=== PATIENT | female | born 1970 | race Caucasian/White ===

== ENCOUNTER 2019-09-22 08:34 | Emergency (ER) | payer BC ==
[2019-09-22] MEDS ORDERED: Ibuprofen 600 MG Tab PO ONE (08:56)
--- NOTE | 2019-09-22 09:00 | EDM.PDOC ---
ED HPI GENERAL MEDICAL PROBLEM - General Chief Complaint: ENT Problem Stated Complaint: SORE THROAT Time Seen by Provider: 09/22/19 08:37 Source of Information: Reports: Patient History Limitations: Reports: No Limitations - History of Present Illness INITIAL COMMENTS - FREE TEXT/NARRATIVE: 49F PMHx bipolar disorder presents for concern for strep throat. Patient states she was in normal state of health until last night she noted mild sore throat. She notes pain with swallowing. No associated cough or SOB. No fevers but notes some body aches. She has not had any tylenol or motrin. She would like to be screened for strep throat. Throat Pain Score (Numeric/FACES): 5 - Related Data Allergies Allergy/AdvReac Type Severity Reaction Status Date / Time trazodone Allergy Difficulty Verified 09/22/19 08:52 Breathing Home Meds: Home Meds Albuterol Sulfate [Proventil Hfa] 6.7 gm IH ASDIRECTED PRN 09/22/19 [History] [place] Carbonate [Lithobid] 750 mg PO BEDTIME 09/22/19 [History] hydrOXYzine HCL [Atarax] 25 mg PO BEDTIME 09/22/19 [History] lamoTRIgine [Lamictal] 200 mg PO BID 09/22/19 [History] ziprasidone HCL [Geodon] 60 mg PO BEDTIME 09/22/19 [History] ED ROS ENT - Review of Systems Review Of Systems: Comprehensive ROS is negative, except as noted in HPI. ED EXAM, ENT - Physical Exam Exam: See Below Exam Limited By: No Limitations General Appearance: Alert, WD/WN, No Apparent Distress Ears: Normal External Exam Nose: Normal Inspection Mouth/Throat: Normal Inspection, Normal Oropharynx Head: Atraumatic, Normocephalic Neck: Normal Inspection. No: Lymphadenopathy (L), Lymphadenopathy (R) Respiratory/Chest: No Respiratory Distress, Lungs Clear, Normal Breath Sounds, No Accessory Muscle Use. No: Stridor Cardiovascular: Normal Peripheral Pulses, Regular Rate, Rhythm Extremities: Normal Inspection Neurological: Alert Psychiatric: Normal Affect Skin: Warm, Dry Course - Vital Signs Last Recorded V/S: Last Vital Signs Temp 98.8 F 09/22/19 08:56 Pulse 93 09/22/19 08:56 Resp 15 09/22/19 08:56 BP 142/78 H 09/22/19 08:56 Pulse Ox 96 08/15/20 08:56 - Orders/Labs/Meds Orders: Active Orders 24 hr Category Date Time Status CULTURE STREP A CONFIRMATION [RM] Stat Lab 09/22/19 09:00 Results STREP SCRN A RAPID W CULT CONF [RM] Stat Lab 09/22/19 09:00 Results Meds: Medications Discontinued Medications Generic Name Dose Route Start Last Admin Trade Name Morris PRN Reason Stop Dose Admin Ibuprofen 600 mg 09/22/19 08:56 09/22/19 09:06 Motrin PO 09/22/19 08:57 600 mg ONETIME ONE Administration - Re-Assessments/Exams Free Text/Narrative Re-Assessment/Exam: 09/22/19 08:59 Normal vitals and normal exam; less concern for bacterial pharyngitis but will do rapid strep w/ confirmation culture. Will give motrin for analgesia. Will f/u results and disposition accordingly. Free Text/Narrative Re-Assessment/Exam: 09/22/19 09:15 Rapid strep testing is negative. Will defer antibiotics pending culture results. Lower suspicion COVID-19 given symptoms and normal VS, but patient informed about the walk-in testing clinic M-F if symptoms persist. Return precautions discussed. Departure - Departure Time of Disposition: 09:15 Disposition: Home, Self-Care 01 Condition: Good Clinical Impression: Viral pharyngitis - Discharge Information Referrals: PMD, PMD [Other] Forms: ED Department Discharge Additional Instructions: The following information is given to patients seen in the emergency department who are being discharged to home. This information is to outline your options for follow-up care. We provide all patients seen in our emergency department with a follow-up referral. The need for follow-up, as well as the timing and circumstances, are variable depending upon the specifics of your emergency department visit. If you don't have a primary care physician on staff, we will provide you with a referral. We always advise you to contact your personal physician following an emergency department visit to inform them of the circumstance of the visit and for follow-up with them and/or the need for any referrals to a consulting specialist. The emergency department will also refer you to a specialist when appropriate. This referral assures that you have the opportunity for follow-up care with a specialist. All of these measure are taken in an effort to provide you with optimal care, which includes your follow-up. Under all circumstances we always encourage you to contact your private physician who remains a resource for coordinating your care. When calling for follow-up care, please make the office aware that this follow-up is from your recent emergency room visit. If for any reason you are refused follow-up, please contact the [facility] Emergency Department at and asked to speak to the emergency department charge nurse. Sepsis Event Note (ED) - Focused Exam Vital Signs: Vital Signs Temp Pulse Resp BP Pulse Ox 09/22/19 08:56 98.8 F 93 15 142/78 H 96 - My Orders Last 24 Hours: My Active Orders 09/22/19 09:00 CULTURE STREP A CONFIRMATION [RM] Stat STREP SCRN A RAPID W CULT CONF [RM] Stat - Assessment/Plan Last 24 Hours: My Active Orders 09/22/19 09:00 CULTURE STREP A CONFIRMATION [RM] Stat STREP SCRN A RAPID W CULT CONF [RM] Stat
== END 2019-09-22 09:37 | disposition home or self-care (01) ==
LOC: MW.ED 08:34
DX: J02.9 Acute pharyngitis, unspecified (principal); Z88.8 Allergy status to other drugs, medicaments and biological substances; Z79.899 Other long term (current) drug therapy
CPT/HCPCS: 87081; 87880; 99283; A9270; 99282

== ENCOUNTER 2020-07-06 10:48 | Emergency (ER) | payer BC ==
--- NOTE | 2020-07-06 10:49 | EDM.PDOC ---
ED HPI GENERAL MEDICAL PROBLEM - General Stated Complaint: UTI Time Seen by Provider: 07/06/20 10:49 Source of Information: Reports: Patient History Limitations: Reports: No Limitations - History of Present Illness INITIAL COMMENTS - FREE TEXT/NARRATIVE: 49-year-old female past medical history psychiatric problems presents for concern for UTI. Patient notes that for the last week she has had pain with urination, increased frequency of urination, a feeling of fullness in her suprapubic pelvis, and mild middle lower back pain. No urinary incontinence or retention. No nausea or vomiting. Patient also incidentally notes that she had knee surgery roughly 1 month ago and over the last couple of weeks has noticed swelling in her left lower extremity from the knee down to the ankle. She notes that she had an ultrasound performed of the left lower extremity to rule out blood clot 2 weeks ago which was negative. - Related Data Allergies Allergy/AdvReac Type Severity Reaction Status Date / Time trazodone Allergy Difficulty Verified 07/06/20 11:09 Breathing Home Meds: Home Meds Albuterol Sulfate [Proventil Hfa] 6.7 gm IH ASDIRECTED PRN 09/22/19 [History] [place] Carbonate [Lithobid] 750 mg PO BEDTIME 09/22/19 [History] lamoTRIgine [Lamictal] 200 mg PO BID 09/22/19 [History] ziprasidone HCL [Geodon] 60 mg PO BEDTIME 09/22/19 [History] Sertraline HCl [Zoloft] 100 mg PO BID 07/06/20 [History] Sulfamethoxazole/Trimethoprim [Bactrim Ds Tablet] 1 each PO BID 7 Days #14 tablet 07/06/20 [Rx] Past Medical History HEENT History: Reports: None Cardiovascular History: Reports: None Respiratory History: Reports: Asthma Gastrointestinal History: Reports: None Genitourinary History: Reports: None [employer] History: Reports: None Musculoskeletal History: Reports: None Neurological History: Reports: None Psychiatric History: Reports: Bipolar Endocrine/Metabolic History: Reports: None Hematologic History: Reports: None Immunologic History: Reports: None Oncologic (Cancer) History: Reports: None Dermatologic History: Reports: None - Infectious Disease History Infectious Disease History: Reports: Chicken Pox - Past Surgical History Head Surgeries/Procedures: Reports: None HEENT Surgical History: Reports: None Cardiovascular Surgical History: Reports: None Respiratory Surgical History: Reports: None GI Surgical History: Reports: None Female Surgical History: Reports: None Endocrine Surgical History: Reports: None Neurological Surgical History: Reports: None Musculoskeletal Surgical History: Reports: None Oncologic Surgical History: Reports: None Dermatological Surgical History: Reports: None Social & Family History - Family History Family Medical History: No Pertinent Family History - Caffeine Use Caffeine Use: Reports: Coffee, Soda, Tea ED ROS GENERAL - Review of Systems Review Of Systems: Comprehensive ROS is negative, except as noted in HPI. ED EXAM, GENERAL - Physical Exam Exam: See Below Exam Limited By: No Limitations General Appearance: Alert, WD/WN, No Apparent Distress Throat/Mouth: Normal Voice, No Airway Compromise Head: Atraumatic, Normocephalic Neck: Normal Inspection Respiratory/Chest: No Respiratory Distress, Lungs Clear, Normal Breath Sounds, No Accessory Muscle Use Cardiovascular: Normal Peripheral Pulses, Regular Rate, Rhythm GI/Abdominal: Soft, Non-Tender Back Exam: No: CVA Tenderness (L), CVA Tenderness (R) Extremities: Normal Inspection, Other (TTP of left calf without warmth or erythema, no significant swelling or edema) Neurological: Alert, Normal Cognition, Normal Gait Psychiatric: Normal Affect, Normal Mood Skin Exam: Warm, Dry, Intact, Normal Color Course - Vital Signs Last Recorded V/S: Last Vital Signs Temp 98.2 F 07/06/20 11:11 Pulse 85 07/06/20 11:11 Resp 18 07/06/20 11:11 BP 143/61 H 07/06/20 11:11 Pulse Ox 95 07/06/20 11:11 - Orders/Labs/Meds Orders: Active Orders 24 hr Category Date Time Status Venous Doppler Lwr Ext Lt [US] Stat Exams 07/06/20 12:08 Ordered Labs: Laboratory Tests 07/06/20 07/06/20 Range/Units 11:05 11:30 INR 1.01 APTT 24.7 (18.6-31.3) SEC D-Dimer, Quantitative 3.73 H (0.0-0.50) mg/L FEU Urine Color DARK YELLOW Urine Appearance CLOUDY Urine pH 5.5 (5.0-8.0) Ur Specific [place] <= 1.005 (1.001-1.035) Urine Protein NEGATIVE (NEGATIVE) mg/dL Urine Glucose (UA) NEGATIVE (NEGATIVE) mg/dL Urine Ketones NEGATIVE (NEGATIVE) mg/dL Urine Occult Blood NEGATIVE (NEGATIVE) Urine Nitrite POSITIVE H (NEGATIVE) Urine Bilirubin NEGATIVE (NEGATIVE) Urine Urobilinogen 1.0 (<2.0) EU/dL Ur Leukocyte Esterase LARGE H (NEGATIVE) Urine RBC 0-2 (0-2/HPF) Urine WBC 8-12 (0-5/HPF) Ur Epithelial Cells MODERATE (NONE-FEW) Urine Bacteria FEW (NEGATIVE) Meds: Medications Discontinued Medications Generic Name Dose Route Start Last Admin Trade Name Morris PRN Reason Stop Dose Admin Trimethoprim/Sulfamethoxazole 1 tab 07/06/20 11:23 07/06/20 11:54 Sulfamethoxazole/Trimethoprim 800-160 Mg Tab PO 07/06/20 11:24 1 tab ONETIME ONE Administration - Re-Assessments/Exams Free Text/Narrative Re-Assessment/Exam: 07/06/20 11:14 Urinalysis is remarkable for evidence of UTI; will give bactrim and send rx for bactrim. Considering patient's recent surgical procedure will get D-dimer to screen for DVT of the LLE. If D-dimer is elevated will get LLE doppler US. 07/06/20 12:09 Patient's D-dimer is markedly elevated. Patient's not any shortness of breath or chest pain. very low suspicion pulmonary embolism. Will get Doppler ultrasonography of the left lower extremity to rule out DVT. 07/06/20 14:00 Wet read of ultrasonography does not reveal DVT. Will discharge patient and will call back with official results. Patient is requesting pain medication stronger than Tylenol for her knee pain. Will discharge with Ultram. Departure - Departure Time of Disposition: 14:00 Disposition: Home, Self-Care 01 Condition: Good Clinical Impression: UTI, Urinary tract infectious disease - Discharge Information Prescriptions: Sulfamethoxazole/Trimethoprim [Bactrim Ds Tablet] 1 each PO BID 7 Days #14 tablet Instructions: Urinary Tract Infection, Adult, [id number] Referrals: PCP,Not In Area [Primary Care Provider] - Additional Instructions: The following information is given to patients seen in the emergency department who are being discharged to home. This information is to outline your options for follow-up care. We provide all patients seen in our emergency department with a follow-up referral. The need for follow-up, as well as the timing and circumstances, are variable depending upon the specifics of your emergency department visit. If you don't have a primary care physician on staff, we will provide you with a referral. We always advise you to contact your personal physician following an emergency department visit to inform them of the circumstance of the visit and for follow-up with them and/or the need for any referrals to a consulting specialist. The emergency department will also refer you to a specialist when appropriate. This referral assures that you have the opportunity for follow-up care with a specialist. All of these measure are taken in an effort to provide you with optimal care, which includes your follow-up. Under all circumstances we always encourage you to contact your private physician who remains a resource for coordinating your care. When calling for follow-up care, please make the office aware that this follow-up is from your recent emergency room visit. If for any reason you are refused follow-up, please contact the [facility] Emergency Department at and asked to speak to the emergency department charge nurse. Please follow up with your primary care physician. If you do not have a primary care physician, see below: [facility] [address] [place] [id number] [facility] [address] [place] [id number] [facility] [address] [place] [id number] Sepsis Event Note (ED) - Focused Exam Vital Signs: Vital Signs Temp Pulse Resp BP Pulse Ox 07/06/20 11:11 98.2 F 85 18 143/61 H 95 - My Orders Last 24 Hours: My Active Orders 07/06/20 12:08 Venous Doppler Lwr Ext Lt [US] Stat - Assessment/Plan Last 24 Hours: My Active Orders 07/06/20 12:08 Venous Doppler Lwr Ext Lt [US] Stat
[2020-07-06] MEDS ORDERED: Sulfamethoxazole/Trimethoprim 800-160 MG Tab PO ONE (11:23)
--- NOTE | 2020-07-08 12:28 | US ---
EXAM DATE: 07/06/20 PATIENT'S AGE: 49 Patient: KIMMY OLIVA Facility: [facility] Site . Site : [id number] Study: US-Extremity Left -07/06/2020 1:31:44 PM Ordering Physician: MIC Final Report: INDICATION: Recent left knee surgery. Calf swelling. Left knee replacement 06/09/2020. TECHNIQUE: Ultrasound venous duplex lower left extremity. Compression venous exam was performed using diallo-scale, color Doppler, and spectral Doppler analysis. COMPARISON: None. FINDINGS: Sonographic imaging demonstrates the left common femoral, deep femoral, superficial femoral, popliteal, posterior tibial, peroneal and greater saphenous and the contralateral right common femoral veins to be fully compressible with normal color Doppler blood flow. Remainder negative. IMPRESSION: Normal left lower extremity venous ultrasound without evidence of DVT. Dictated by Anton Arellano MD @ 07/06/2020 2:07:59 PM Signed by: Anton Arellano MD @07/06/2020 2:07:59 PM (Electronic Signature) Report Signed by Proxy. [facility]
== END 2020-07-06 14:15 | disposition home or self-care (01) ==
LOC: MW.ED 10:48
DX: N39.0 Urinary tract infection, site not specified (principal); J45.909 Unspecified asthma, uncomplicated; Z88.8 Allergy status to other drugs, medicaments and biological substances; Z79.899 Other long term (current) drug therapy
CPT/HCPCS: 36415; 81001; 85379; 85610; 85730; 93971; 99284; A9270; 99283